=== PATIENT | female | born 1995 | race Caucasian/White ===

== ENCOUNTER 2024-03-30 09:58 | Emergency (ER) | payer OTHER, SELFPAY ==
[2024-03-30 10:01] VITALS: BP 120/70
--- NOTE | 2024-03-30 11:05 | ED.GENMED ---
History of Present Illness
General
Chief Complaint: Musculo-Skeletal Complaint
Source: patient
Time Seen by Provider: 03/30/24 10:42
History of Present Illness
History of Present Illness:
28-year-old female presenting to the emergency department for evaluation of right ankle pain after she tripped and injured her right ankle last night, today unable to ambulate secondary to pain. Denies any previous history of injury or surgery. No
other injuries sustained.
Past History
Past History
ED Past Medical History: None
ED Past Surgical History: None
Social History
Tobacco: Non-smoker
Alcohol: None
Drug: None
Personal: Partner
Living: with family
Review of Systems
Review of Systems
All Other Systems: ROS reviewed and negative except as documented in HPI and ROS
Phy Exam
Physical Exam
Physical Exam:
GENERAL: Alert , in no apparent distress
EYE: conjunctiva clear
Head: Normocephalic atraumatic
NECK: Supple,
ENT: mmm.
LUNGS: no acute respiratory distress
NEUROLOGICAL: Alert and oriented
SKIN: Warm and dry, skin intact.
MUSCULOSKELETAL: Right Ankle: Moderate soft tissue swelling of the right lateral malleolus with tenderness over this area. Range of motion limited secondary to pain. No proximal tib-fib tenderness. No tenderness at the base of the fifth
metatarsal. Easily palpable pedal and tibial pulse. Cap refill less than 2 seconds. Sensation grossly intact to light touch.
PSYCH: Normal and appropriate interaction.
Scores
Heart Failure Risk
Heart Failure Risk Score: Not Applicable
Heart Score for Chest Pain Patients
STEMI patient?: Not applicable
Withdrawal Assessment of Alcohol
Withdrawal Assessment Completed?: Not applicable
Course
Orders/Labs/Results
Orders:
Orders
03/30/24 10:04
Ankle, Right 3 view CR [CR Ankle - Right Min 3 Views *] Urgent
Comment:
Reason For Exam: pain injury
Vital Signs
Initial and Last Documented VS:
Initial Vital Signs
Temp Pulse Resp BP Pulse Ox
98.8 F 71 16 120/70 100
03/30/24 10:01 03/30/24 10:01 03/30/24 10:01 03/30/24 10:01 03/30/24 10:01
Last Documented Vital Signs
Temp Pulse Resp BP Pulse Ox
98.8 F 71 16 120/70 100
03/30/24 10:01 03/30/24 10:01 03/30/24 10:01 03/30/24 10:01 03/30/24 10:01
Procedures
Splinting/Sling Placement
Right Lower Leg:
Procedure completed by: Jorge
Pre-splint extermity exam: neurovascular intact
Type of splint: posterior short leg
Splint material: other (3 inch Ortho-Glass)
Splint checked by provider?: Yes
Normal distal neurovascular exam?: Yes
MDM/Problems Addressed
Differential Diagnosis Includes:
Sprain, fracture, contusion
MDM/Problems Addressed:
28-year-old female presenting to the ER for evaluation of right ankle injury sustained last night and an accidental fall. X-ray was ordered from triage and unfortunately shows a nondisplaced lateral malleolus fracture. Patient was placed in a
splint as above. Advised on following up with orthopedic provider. NSAIDs/Tylenol as needed for pain. RICE recommendations discussed. Otherwise stable for discharge home
*Radiology
Radiology exam reviewed: radiology read reviewed (Nondisplaced lateral malleolus)
*Pulse Oximetry
Patient hypoxic: no
*Critical Care Note
Total Time (30-74mins, 75-104mins- exclusive of procedures): Not Applicable
ED Attending Note
-
Portions of this chart may have been created with voice recognition software.� Occasional wrong word or��sound alike� substitutions may have occurred due to the inherent limitations of voice recognition software.
Discharge Plan
Departure
Patient Disposition: Home (Routine Discharge)
Date of Disposition: 03/30/24
Time of Disposition: 11:05
Patient with high blood pressure during this ER visit?: No
Discharge Problem:
Closed fracture of lateral malleolus of right ankle
Instructions: Ankle Fracture (DC)
Referrals:
[facility] [Outside]
George Cantu MD [Active] - (Ortho - Please call for appointment)
Interventions
Interventions:
*Risk Screen - Suicide Last Done: 03/30/24 10:01
*General Assessment Last Done: 03/30/24 10:49
*Neglect/Abuse Screening Last Done: 03/30/24 10:01
ED- Fall Risk Assessment Last Done: 03/30/24 10:49
*ED COVID-19 Vaccine History Last Done: 03/30/24 10:49
*Nursing Disposition Last Done: 03/30/24 11:38
ED-Musculoskeletal Assessment Last Done: 03/30/24 10:49
Discharge Date and Time
Discharge Date/Time: 03/30/24 11:38
Print Language: [id number]
== END 2024-03-30 11:38 | disposition home or self-care (01) ==
LOC: EMR 09:58
PROVIDERS: EMERGENCY PHYSICIAN Emergency Medicine; FAMILY PHYSICIAN Nurse Practitioner
DX: S82.61XA Displaced fracture of lateral malleolus of right fibula, initial encounter for closed fracture (principal); W18.40XA Slipping, tripping and stumbling without falling, unspecified, initial encounter
CPT/HCPCS: 99283; 29515; 73610